=== PATIENT | female | born 1985 | race Caucasian/White ===

== ENCOUNTER 2019-02-25 23:11 | Emergency (ER) | payer SELFPAY ==
[~2019-02-25] VITALS: Ht 154.9 cm; Wt 64.8 kg
[2019-02-25 23:35] VITALS: BP 131/74; PULSE 74; RESP 18; Ht 154.9 cm; Wt 64.8 kg
== END 2019-02-26 01:47 | disposition left against medical advice (07) ==
LOC: FTE 23:11
DX: Z53.21 Procedure and treatment not carried out due to patient leaving prior to being seen by health care provider (principal)